=== PATIENT | male | born 1970 | race African-American/Black ===

== ENCOUNTER 2017-08-04 11:40 | Emergency (ER) | payer OTHER ==
[~2017-08-04] VITALS: Ht 167.6 cm; Wt 81.7 kg
[~2017-08-04 11:40] MED LIST: CIPRO250 M1; COREG6.25 MG PO; CORTISPORIN-TC10 ML OT; COZAAR 25 MG TA25 M1 PO; IBUPROFEN 600600 M1 PO; PRINIVIL20 MG PO; PROAIR HFA8.5 GM INH
[2017-08-04 12:49] LABS: ABSOLUTE EOSINOPHILS 0.2 thou/uL (0.0-0.7); ABSOLUTE LYMPHOCYTES 1.5 thou/uL (0.8-5.3); ABSOLUTE MONOCYTES 0.6 thou/uL (0.0-1.2); ABSOLUTE NEUTROPHILS 4.1 thou/uL (1.6-8.1); ANION GAP 1 mmol/L (7-16); BASOPHILS 0.6 %; BUN 16 mg/dL (7-18); CALCIUM 8.8 mg/dL (8.5-10.1); CHLORIDE 103 mmol/L (98-107); CO2 36 mmol/L (21-32); CREATININE 1.1 mg/dL (0.6-1.3); EOSINOPHILS 3.3 %; GLUCOSE 138 mg/dL (70-99); HEMOGLOBIN 13.8 gm/dL (14.0-18.0); LYMPHOCYTES 23.8 %; MCHC 33.5 g/dL (28.0-37.0); MCV 92.4 fL (80.0-100.0); MPV 8.7 fl. (7.2-11.1); NUCLEATED RBCS 0 /100WBC; PLATELET COUNT* 238 thou/uL (150-400); POLYS 63.3 %; POTASSIUM 3.6 mmol/L (3.5-5.1); RBC 4.44 mil/uL (4.50-6.00); RDW-CV 13.7 % (10.5-14.5); SODIUM 140 mmol/L (136-145); WBC 6.4 thou/uL (4.0-11.0)
[2017-08-04 12:50] LABS: APTT 27.8 Seconds (25.0-31.3)
[2017-08-04 13:11] LABS: ALBUMIN 3.7 g/dL (3.4-5.0); ALKALINE PHOSPHATASE 93 U/L (46-116); CK-MB MASS 1.4 ng/mL (<0.5-3.6); LIPASE 691 U/L (73-393); MAGNESIUM 1.8 mg/dL (1.8-2.4); NT-PRO BRAIN NAT PEPTIDE 61 pg/mL (<300); SGOT 20 U/L (15-37); SGPT 27 U/L (30-65); TOTAL BILIRUBIN 0.4 mg/dL (<0.1-1.0); TOTAL PROTEIN 7.4 g/dL (6.4-8.2); TROPONIN-I LEVEL <0.06 ng/mL (<0.06)
[2017-08-04] MEDS ORDERED: ZESTORETIC 20-1 EACH PO (13:13)
[2017-08-04 13:27] VITALS: BP 177/102
--- NOTE | 2017-08-04 20:20 | EKG ---
[place] [address] ELECTROCARDIOGRAM REPORT Name: MICHAEL BUSBY Room: 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: Dagoberto DONALD : 1970 Requested By: Mathew Braxton Order Number: [id number] MD: Nasim Quiroga Measurements Intervals [place] Rate: 94 P: 78 [place]: 176 QRS: 85 QRSD: 72 T: -32 QT: 367 QTc: 459 Interpretive Statements Sinus rhythm Consider left atrial enlargement Borderline T wave abnormalities Compared to ECG 08/13/2015 11:22:53 T-wave abnormality now present Sinus arrhythmia no longer present Right-axis deviation no longer present Electronically Signed On 08-04-2017 20:20:31 [employer]SULTANT by Nasim Quiroga [email or web address] <ELECTRONICALLY SIGNED> By: Nasim Quiroga MD, FACC 08/04/172019 1149 1149 Nasim Quiroga MD, [facility] /EPI
== END 2017-08-04 13:27 | disposition home or self-care (01) ==
LOC: M.ERS 11:40
PROVIDERS: Family Medicine
DX: R07.89 Other chest pain (principal); I10 Essential (primary) hypertension; J45.909 Unspecified asthma, uncomplicated; F17.210 Nicotine dependence, cigarettes, uncomplicated; F12.20 Cannabis dependence, uncomplicated; F10.99 Alcohol use, unspecified with unspecified alcohol-induced disorder; Z91.013 Allergy to seafood

== ENCOUNTER → 2017-09-07 | Outpatient (CLI) | payer OTHER ==
[~2017-09-07] MED LIST changes: +AMLODIPINE BESY10 MG PO; +MOBIC15 MG PO; +PROTONIX40 MG PO; +ZESTORETIC 20-1 EACH PO
== END ==
LOC: M.RAD 11:22
DX: M47.892 Other spondylosis, cervical region (principal)

== ENCOUNTER 2017-10-25 09:29 | Emergency (ER) | payer OTHER ==
[~2017-10-25] VITALS: Ht 170.2 cm; Wt 84.4 kg
[~2017-10-25 09:29] MED LIST changes: -AMLODIPINE BESY10 MG PO; -MOBIC15 MG PO; -PROTONIX40 MG PO
[2017-10-25] MEDS ORDERED: AMLODIPINE BESY10 MG PO (09:40)
[2017-10-25] MEDS ORDERED: MOBIC15 MG PO (09:40)
[2017-10-25 09:59] LABS: ABSOLUTE BASOPHILS 0.1 thou/uL (0.0-0.2); ABSOLUTE EOSINOPHILS 0.3 thou/uL (0.0-0.7); ABSOLUTE MONOCYTES 0.8 thou/uL (0.0-1.2); ABSOLUTE NEUTROPHILS 5.7 thou/uL (1.6-8.1); BASOPHILS 0.8 %; EOSINOPHILS 3.1 %; HEMOGLOBIN 13.8 gm/dL (14.0-18.0); LYMPHOCYTES 22.7 %; MCH 30.4 pg (26.0-34.0); MCHC 32.9 g/dL (28.0-37.0); MCV 92.5 fL (80.0-100.0); MONOCYTES 8.8 %; MPV 8.7 fl. (7.2-11.1); NUCLEATED RBCS 0 /100WBC; PLATELET COUNT* 256 thou/uL (150-400); POLYS 64.6 %; RBC 4.54 mil/uL (4.50-6.00); RDW-CV 13.8 % (10.5-14.5); WBC 8.8 thou/uL (4.0-11.0)
[2017-10-25 10:09] LABS: ANION GAP 5 mmol/L (7-16); BUN 15 mg/dL (7-18); CALCIUM 9.3 mg/dL (8.5-10.1); CHLORIDE 102 mmol/L (98-107); CO2 33 mmol/L (21-32); CREATININE 1.2 mg/dL (0.6-1.3); GLUCOSE 99 mg/dL (70-99); POTASSIUM 4.9 mmol/L (3.5-5.1); SODIUM 140 mmol/L (136-145)
[2017-10-25 10:10] LABS: URINE BILIRUBIN NEGATIVE (Negative); URINE BLOOD NEGATIVE (Negative); URINE CLARITY CLEAR; URINE COLOR YELLOW; URINE GLUCOSE-RANDOM NEGATIVE (Negative); URINE KETONES NEGATIVE (Negative); URINE LEUKOCYTES-REFLEX NEGATIVE (Negative); URINE NITRITE-REFLEX NEGATIVE (Negative); URINE PROTEIN TRACE (Negative); URINE UROBILINOGEN 0.2 E.U./dl (0.2-1.0)
[2017-10-25 10:13] LABS: PROTIME 9.6 Seconds (9.20-11.50)
[2017-10-25 10:15] LABS: ALBUMIN 3.9 g/dL (3.4-5.0); ALKALINE PHOSPHATASE 88 U/L (46-116); LIPASE 156 U/L (73-393); SGPT 27 U/L (30-65); TOTAL BILIRUBIN 0.7 mg/dL (<0.1-1.0); TOTAL PROTEIN 8.2 g/dL (6.4-8.2); TROPONIN-I LEVEL <0.06 ng/mL (<0.06)
[2017-10-25 10:16] LABS: SGOT 27 U/L (15-37)
[2017-10-25] MEDS ORDERED: PROTONIX40 MG PO (11:12)
[2017-10-25 11:21] VITALS: BP 153/113
--- NOTE | 2017-10-25 15:20 | EKG ---
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
== END 2017-10-25 11:22 | disposition home or self-care (01) ==
LOC: M.ERS 09:29
PROVIDERS: Family Medicine
DX: R10.30 Lower abdominal pain, unspecified (principal); I10 Essential (primary) hypertension; J45.909 Unspecified asthma, uncomplicated; M19.90 Unspecified osteoarthritis, unspecified site; F17.210 Nicotine dependence, cigarettes, uncomplicated; Z91.013 Allergy to seafood

== ENCOUNTER → 2019-06-10 | Outpatient (CLI) | payer OTHER ==
[~2019-06-10] MED LIST changes: +AMLODIPINE BESY10 MG PO; +MOBIC15 MG PO; +PROTONIX40 MG PO
== END ==
LOC: M.RAD 12:28
DX: M79.675 Pain in left toe(s) (principal)

== ENCOUNTER 2019-08-23 11:41 | Emergency (ER) | payer OTHER ==
[~2019-08-23] VITALS: Ht 167.6 cm; Wt 83.9 kg
[2019-08-23] MEDS ORDERED: COZAAR 25 MG TA25 M2 PO (11:53)
[2019-08-23] MEDS ORDERED: NEURONTIN100 MG PO (11:53)
[2019-08-23] MEDS ORDERED: ALLOPURINOL 10100 M3 PO (11:54)
[2019-08-23 12:12] LABS: ABSOLUTE BASOPHILS 0.1 thou/uL (0.0-0.2); ABSOLUTE EOSINOPHILS 0.1 thou/uL (0.0-0.7); ABSOLUTE MONOCYTES 0.6 thou/uL (0.0-1.2); ABSOLUTE NEUTROPHILS 3.1 thou/uL (1.6-8.1); BASOPHILS 1.3 %; EOSINOPHILS 2.5 %; HEMATOCRIT 40.5 % (42.0-52.0); HEMOGLOBIN 13.7 gm/dL (14.0-18.0); LYMPHOCYTES 33.7 %; MCH 31.2 pg (26.0-34.0); MCHC 33.7 g/dL (28.0-37.0); MCV 92.7 fL (80.0-100.0); MONOCYTES 9.8 %; MPV 8.5 fl. (7.2-11.1); NUCLEATED RBCS 0 /100WBC; PLATELET COUNT* 249 thou/uL (150-400); POLYS 52.7 %; RBC 4.37 mil/uL (4.50-6.00); RDW-CV 14.2 % (10.5-14.5)
[2019-08-23 12:20] LABS: APTT 25.8 Seconds (25.0-31.3); INR 0.9; PROTIME 9.6 Seconds (9.20-11.50)
[2019-08-23 12:23] LABS: CALCIUM 8.9 mg/dL (8.5-10.1); CREATININE 1.1 mg/dL (0.6-1.3); POTASSIUM 4.2 mmol/L (3.5-5.1)
[2019-08-23 12:37] LABS: ALBUMIN 3.8 g/dL (3.4-5.0); CK-MB MASS 3.8 ng/mL (<0.5-3.6); MAGNESIUM 1.8 mg/dL (1.8-2.4); TOTAL BILIRUBIN 0.5 mg/dL (<0.1-1.0); TOTAL PROTEIN 7.4 g/dL (6.4-8.2)
[2019-08-23] MEDS ORDERED: HYDROCHLOROTH12.5 M2 PO (14:58)
[2019-08-23 15:07] VITALS: BP 157/116
--- NOTE | 2019-08-23 17:43 | EKG ---
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 08/23/19 1741 1145 1145 Nasim Quiroga MD, FACC /EPI
== END 2019-08-23 15:10 | disposition home or self-care (01) ==
LOC: M.ERS 11:41
PROVIDERS: Emergency Medicine
DX: I10 Essential (primary) hypertension (principal); R42 Dizziness and giddiness; J45.909 Unspecified asthma, uncomplicated; M10.9 Gout, unspecified; M19.90 Unspecified osteoarthritis, unspecified site; F17.210 Nicotine dependence, cigarettes, uncomplicated; Z91.013 Allergy to seafood

== ENCOUNTER 2021-06-14 14:47 | Emergency (ER) | payer OTHER ==
[~2021-06-14] VITALS: Ht 170.2 cm; Wt 81.7 kg
[~2021-06-14 14:47] MED LIST changes: +ALLOPURINOL 10100 M3 PO; +COZAAR 25 MG TA25 M2 PO; +HYDROCHLOROTH12.5 M2 PO; +NEURONTIN100 MG PO
[2021-06-14 18:00] VITALS: BP 144/98
--- NOTE | 2021-06-15 09:48 | EKG ---
[place] [address] ELECTROCARDIOGRAM REPORT Name: MICHAEL BUSBY Room: 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
== END 2021-06-14 20:22 | disposition left against medical advice (07) ==
LOC: M.ERS 14:47
DX: R07.89 Other chest pain (principal); M79.602 Pain in left arm; M54.2 Cervicalgia; R51.9 Headache, unspecified; Z53.21 Procedure and treatment not carried out due to patient leaving prior to being seen by health care provider